=== PATIENT | male | born 1990 | race Two or more races ===

== ENCOUNTER 2019-09-03 14:49 | Emergency (ER) | payer SELFPAY ==
[~2019-09-03] VITALS: Ht 165.1 cm; Wt 82.6 kg
[2019-09-03 15:10] VITALS: BP 148/93
--- NOTE | 2019-09-03 15:58 | PHYS DOC ---
Past Medical History Past Medical History: No Pertinent History Past Surgical History: No Surgical History Smoking Status: Never Smoker Alcohol Use: None Adult General Chief Complaint Chief Complaint: Neck Pain HPI HPI Patient is a 28 year old male who presents with right-sided throat pain for last 4 hours he states it is aching and is very sore and Lenin swallow. States he is able to swallow foods and fluids but is very painful. He states he just awoke with it today. He rates his pain 8 out of 10. Review of Systems Review of Systems HENT: Denies nasal congestion. sore throat [] All other systems were reviewed and found to be within normal limits, except as documented in this note. Current Medications Current Medications Current Medications Medications (Trade) Dose Ordered Sig/Rebeca Start Time Stop Time Status Last Admin Dose Admin Dexamethasone (Decadron) 10 mg 1X ONCE 09/03/19 16:00 09/03/19 16:18 DC 09/03/19 16:00 10 MG Allergies Allergies Allergies Coded Allergies Type Severity Reaction Last Updated Verified No Known Drug Allergies 09/03/19 No Physical Exam Physical Exam Constitutional: Well developed, well nourished, no acute distress, non-toxic appearance. [] HENT: Normocephalic, atraumatic, bilateral external ears normal, oropharynx moist, no oral exudates, nose normal. Right tonsil red and swollen,no exudates. [] Eyes: PERRLA, EOMI, conjunctiva normal, no discharge. [] Neck: Normal range of motion, no tenderness, supple, no stridor. [] Cardiovascular:Heart rate regular rhythm, no murmur [] Lungs & Thorax: Bilateral breath sounds clear to auscultation [] Abdomen: Bowel sounds normal, soft, no tenderness, no masses, no pulsatile masses. [] Skin: Warm, dry, no erythema, no rash. [] Back: No tenderness, no CVA tenderness. [] Extremities: No tenderness, no cyanosis, no clubbing, ROM intact, no edema. [] Neurologic: Alert and oriented X 3, normal motor function, normal sensory function, no focal deficits noted. [] Psychologic: Affect normal, judgement normal, mood normal. [] Current Patient Data Vital Signs Vital Signs Date Time Temp Pulse Resp B/P (MAP) Pulse Ox O2 Delivery O2 Flow Rate FiO2 09/03/19 15:10 98.6 107 18 148/93 (111) 95 Room Air 98.6 EKG EKG [] Radiology/Procedures Radiology/Procedures [] Course & Med Decision Making Course & Med Decision Making Pertinent Labs and Imaging studies reviewed. (See chart for details) Speaks in full clear senses. The right tonsil looks slightly more swollen than the left today around 1+. Uvula midline. No trismus. There is some redness but no exudates are seen. Patient has full range of motion of his neck and denies a stiff neck or neck pain he says his thumb inside of his throat that hurts. Denies nausea, vomiting, fever, chills, body aches, abdominal pain, stiff neck, chest pain, shortness of air, dizziness, headache, cough, nasal congestion. Patient is given dexamethasone for is swollen right tonsil and ibuprofen in the ED. Strep negative. Patient educated to take Ibuprofen and to follow up with primary care provider if begins running a fever. [] Dragon Disclaimer Dragon Disclaimer This electronic medical record was generated, in whole or in part, using a voice recognition dictation system. Departure Departure Impression: Primary Impression: Sore throat (viral) Disposition: HOME, SELF-CARE Condition: STABLE Referrals: NO PCP (PCP) Patient Instructions: Sore Throat Additional Instructions: Follow up with primary care if not getting better or you begin running a fever. Take Ibupforen for your pain. Scripts Ibuprofen (IBUPROFEN) 600 Mg Tablet 600 MG PO PRN Q6HRS PRN for INFLAMMATION, #20 TAB Prov: BARNEY ULRICH APRN 09/03/19 BARNEY ULRICH APRN Sep 03, 2019 15:58
[2019-09-03] MEDS ORDERED: DEXAMETHASONE 4 MG TABLET PO ONE (16:00)
[2019-09-03] MEDS ORDERED: IBUP-1007 PO (16:53)
== END 2019-09-03 17:00 | disposition home or self-care (01) ==
LOC: ER 14:49
DX: J02.8 Acute pharyngitis due to other specified organisms (principal); L53.9 Erythematous condition, unspecified
CPT/HCPCS: 87070; 87880; 99283; J8540